=== PATIENT | male | born 1985 | race Caucasian/White ===

== ENCOUNTER 2017-07-11 20:50 | Emergency (ER) | payer OTHER ==
[~2017-07-11] VITALS: Ht 180.3 cm; Wt 87.3 kg
[2017-07-11] MEDS ORDERED: IBUPROFEN 600 MG TABLET PO ONE (22:00)
[2017-07-11] MEDS ORDERED: CIPROFLOXACIN HCL 250 MG TABLET PO ONE (22:00)
[2017-07-11 22:42] VITALS: BP 141/91
== END 2017-07-11 22:45 | disposition home or self-care (01) ==
LOC: EMS 20:52
DX: S50.811A Abrasion of right forearm, initial encounter (principal); S70.311A Abrasion, right thigh, initial encounter; W54.0XXA Bitten by dog, initial encounter; Y93.89 Activity, other specified; Y92.89 Other specified places as the place of occurrence of the external cause; Y99.8 Other external cause status
CPT/HCPCS: 99284